=== PATIENT | female | born 2005 | race African-American/Black ===

== ENCOUNTER 2024-08-18 02:02 | Emergency (ER) | payer SELFPAY ==
[2024-08-18] MEDS ORDERED: NA CHLORIDE 0.9% 1,000 ML ONE (03:03)
[2024-08-18 03:23] LABS: Absolute Basophils 0.1 K/uL (0-0.5); Absolute Eosinophils 0.1 K/uL (0-0.5); Absolute Lymphocytes (CBC) 2.4 K/uL (0.7-4.9); Absolute Monocytes 0.7 K/uL (0.1-1.3); Absolute Neutrophil 4.3 K/uL (1.8-8.0); Basophils % 0.8 % (0-1.3); Eosinophils % 1.8 % (0-4.4); Hematocrit 27.5 % (36.0-45.0); Hemoglobin 9.2 g/dL (12.0-15.0); Lymphocytes % 31.2 % (15.3-44.8); MCH 23.5 pg (27.0-35.0); MCHC 33.4 g/dL (32.0-36.0); MCV 70.3 fL (80-100); MPV 9.2 fL (7.6-11.3); Monocytes % 9.8 % (3.3-12.3); Neutrophils % 56.4 % (41.7-73.7); Platelets 313 thou/uL (152-406); RBC Red Blood Cell Count 3.91 M/uL (3.86-4.86); Red Cell Distribution Width 15.7 % (12.1-15.2)
[2024-08-18 03:34] LABS: Albumin 3.6 g/dL (3.4-5.0); Albumin/Globulin Ratio 0.9 (1.1-1.8); Anion Gap 11.5 mEq/L (5.0-15.0); Bilirubin Total 0.2 mg/dL (0.2-1.0); Globulin 3.9 g/dL (2.3-3.5); Potassium 3.5 mEq/L (3.5-5.1); Protein, Total 7.5 g/dL (6.4-8.2)
--- NOTE | 2024-08-18 04:06 | ER ---
Nurse's Notes [facility] Name: Barbara De Paz Age: 18 yrs Sex: Female : 2005 Arrival Date: 08/18/2024 Time: 02:02 Bed 6 Private MD: Diagnosis: Weakness Presentation: 08/18 02:17 Chief complaint: Patient states: FEELING VERY WEAK, LIGHT HEADACHE, DIZZY, CHEST PAIN ha1 OFF AND ON. I WAS TOLD MY IRON WAS AND THAT I NEEDED AND IRON INFUSION BUT I HAVE NOT BEEN ABLE TO GET IT DONE YET. 02:17 Coronavirus screen: Client denies travel out of the [place] in the last 14 days. Ebola ha1 Screen: No symptoms or risks identified at this time. Initial Sepsis Screen: Does the patient meet any 2 criteria? No. Patient's initial sepsis screen is negative. Does the patient have a suspected source of infection? No. Patient's initial sepsis screen is negative. Risk Assessment: Do you want to hurt yourself or someone else? Patient reports no desire to harm self or others. Onset of symptoms was August 18, 2024. 02:17 Method Of Arrival: Wheelchair ha1 02:17 Acuity: CHELSI 3 ha1 Triage Assessment: 02:17 General: Appears ill, Behavior is calm, cooperative. Pain: Complains of pain in DENIES ha1 PAIN AT THIS MOMENT BUT HAD PREVIOUS EPISODES OF CHEST PAIN. Neuro: Level of Consciousness is awake, alert, obeys commands, Oriented to person, place, time, situation, Reports dizziness, headache. Cardiovascular: Capillary refill < 3 seconds Patient's skin is warm and dry. Respiratory: Airway is patent Respiratory effort is even, unlabored. GI: No signs and/or symptoms were reported involving the gastrointestinal system. Abdomen is round. : No signs and/or symptoms were reported regarding the genitourinary system. Derm: Skin is pale. Musculoskeletal: Circulation, motion, and sensation intact. Range of motion: intact in all extremities. 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 - Infectious Disease History:: Denies. - Social history:: Smoking status: Patient denies any tobacco usage or history of. Screenin:47 [facility] ED Fall Risk Assessment (Adult) History of falling in the last 3 months, ha1 including since admission Yes- single mechanical fall (1 pt) Confusion or Disorientation No (0 pts) Intoxicated or Sedated No (0 pts) Impaired Gait Yes (1 pt) Mobility Assist Device Used Yes (1 pt) Altered Elimination No (0 pt) Score/Fall Risk Level 3 or more points = High Risk Oriented to surroundings, Maintained a safe environment, Educated pt \T\ family on fall prevention, incl call for assistance when getting out of bed, Hourly rounding (assess needs \T\ fall precautionary measures) done. Abuse screen: Denies threats or abuse. Denies injuries from another. Nutritional screening: No deficits noted. Tuberculosis screening: No symptoms or risk factors identified. Assessment: 03:39 Reassessment: Patient appears in no apparent distress at this time. No changes from km10 previously documented assessment. Patient and/or family updated on plan of care and expected duration. Pain level reassessed. Vital Signs: 02:17 BP 123 / 68; Pulse 55; Resp 18 S; Temp 97.4(T); Pulse Ox 100% on R/A; Weight 65.77 kg; ha1 Height 5 ft. 3 in. ; 03:37 BP 93 / 74; Pulse 79; Resp 14; Pulse Ox 100% on R/A; km10 02:17 Body Mass Index 25.69 (65.77 kg, 160.02 cm) ha1 ED Course: 02:06 Patient arrived in ED. gm2 02:13 Janell Powell MD is Attending Physician. gb1 02:17 Patient has correct armband on for positive identification. Placed in gown. Bed in low ha1 position. Side rails up X2. 02:17 Provided Education on: PLAN OF CARE . ha1 02:20 Arm band placed on. km10 02:32 Matilde Maurice RN is Primary Nurse. ha1 02:38 Triage completed. ha1 02:49 Inserted saline lock: 20 gauge in right antecubital area, using aseptic technique. ha1 Blood collected. Flushed with 10 mL NS. 04:03 Test, Urine Sent. km10 04:06 No provider procedures requiring assistance completed. IV discontinued, intact, km10 bleeding controlled, No redness/swelling at site. Pressure dressing applied. Administered Medications: 03:08 Drug: NS 0.9% IV 1000 ml IV at 1 bolus Per protocol; to be given as a bolus over 60 km10 minutes Route: IV; Rate: 1 bolus; Site: right antecubital; 04:04 Follow up: Response: No adverse reaction; Marked relief of symptoms; IV Status: km10 Completed infusion Medication: 02:49 VIS not applicable for this client. ha1 Outcome: 04:06 Discharge ordered by . tamar 04:06 Discharged to home ambulatory, km10 04:06 Condition: stable 04:06 Discharge instructions given to patient, Instructed on discharge instructions, follow up and referral plans. 04:16 Patient left the ED. km10 Signatures: Matilde Maurice RN RN 1 Janell Powell MD MD gb1 Theresa Castillo 2 Helen Galvan RN RN km10
--- NOTE | 2024-08-18 04:06 | EDPHYS ---
Physician Documentation [facility] Name: Barbara De Paz Age: 18 yrs Sex: Female : 2005 Arrival Date: 08/18/2024 Time: 02:02 Bed 6 Private MD: ED Physician Janell Powell HPI: 08/18 04:02 This 18 yrs old Black Female presents to ER via Wheelchair with complaints of Weakness, gb1 Chest Tightness. 04:02 18-year-old -[place] female here with weakness and some chest tightness. She gb1 was told that she needed an iron transfusion because she can to be evaluated for that today. She is lightly spotting on her menstrual cycle currently. Patient denies any blood thinning medications or any antiplatelet medications. She is 9 months .. 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 - Infectious Disease History:: Denies. - Social history:: Smoking status: Patient denies any tobacco usage or history of. Exam: 04:02 Constitutional: This is a well developed, well nourished patient who is awake, alert, gb1 and in no acute distress. Head/Face: Normocephalic, atraumatic. Eyes: Pupils equal round and reactive to light, extra-ocular motions intact. Lids and lashes normal. Conjunctiva and sclera are non-icteric and not injected. Cornea within normal limits. Periorbital areas with no swelling, redness, or edema. ENT: Nares patent. No nasal discharge, no septal abnormalities noted. Tympanic membranes are normal and external auditory canals are clear. Oropharynx with no redness, swelling, or masses, exudates, or evidence of obstruction, uvula midline. Mucous membranes moist. Neck: Trachea midline, no thyromegaly or masses palpated, and no cervical lymphadenopathy. Supple, full range of motion without nuchal rigidity, or vertebral point tenderness. No Meningismus. Chest/axilla: Normal chest wall appearance and motion. Nontender with no deformity. No lesions are appreciated. Cardiovascular: Regular rate and rhythm with a normal S1 and S2. No gallops, murmurs, or rubs. Normal PMI, no JVD. No pulse deficits. Respiratory: Lungs have equal breath sounds bilaterally, clear to auscultation and percussion. No rales, rhonchi or wheezes noted. No increased work of breathing, no retractions or nasal flaring. Abdomen/GI: Soft, non-tender, with normal bowel sounds. No distension or tympany. No guarding or rebound. No evidence of tenderness throughout. Back: No spinal tenderness. No costovertebral tenderness. Full range of motion. Skin: Warm, dry with normal turgor. Normal color with no rashes, no lesions, and no evidence of cellulitis. Vital Signs: 02:17 BP 123 / 68; Pulse 55; Resp 18 S; Temp 97.4(T); Pulse Ox 100% on R/A; Weight 65.77 kg; ha1 Height 5 ft. 3 in. ; 03:37 BP 93 / 74; Pulse 79; Resp 14; Pulse Ox 100% on R/A; km10 02:17 Body Mass Index 25.69 (65.77 kg, 160.02 cm) [facility] MDM: 02:22 Medical Screening Exam initiated gb 04:02 Data reviewed: vital signs, nurses notes, lab test result(s), CBC. gb 04:02 ED course: 18-year-old female with weakness and chest tightness. No anginal component gb1 at this time. Patient has a stable H\T\H today no indication for emergent PRBC transfusion. I do recommend that she see RETORT FORKER and be evaluated for an iron infusion as she was previously recommended to do so. She is otherwise vitally stable is a normal physical exam her EKG shows sinus bradycardia at 49 bpm. Patient states that she has a history of a low heart rate I do recommend follow-up with cardiology to be evaluated to wear a Holter monitor for further investigation. Her EKG shows no acute interval changes normal axis.. 08/18 02:59 Order name: CBC with Diff; Complete Time: 03:51 gb08/18 02:59 Order name: CMP; Complete Time: 03:51 gb08/18 02:59 Order name: Test, Urine 08/18 02:59 Order name: UA Rfx Germán Cult if indicated 08/18 02:59 Order name: IV Saline Lock; Complete Time: 03:00 gb1 08/18 02:59 Order name: Labs collected and sent; Complete Time: 03:08 gb1 Administered Medications: 03:08 Drug: NS 0.9% IV 1000 ml IV at 1 bolus Per protocol; to be given as a bolus over 60 km10 minutes Route: IV; Rate: 1 bolus; Site: right antecubital; 04:04 Follow up: Response: No adverse reaction; Marked relief of symptoms; IV Status: km10 Completed infusion Disposition Summary: 08/18/24 04:06 Discharge Ordered Notes: Location: Home gb1 Condition: Stable gb1 Diagnosis - Weakness gb1 Followup: gb1 - With: Private Physician - When: - Reason: Further diagnostic work-up, Recheck today's complaints Discharge Instructions: - Discharge Summary Sheet gb1 - Weakness gb1 Forms: - Medication Reconciliation Form gb1 - Antibiotic Education gb1 - Prescription Opioid Use gb1 - Patient Portal Instructions gb1 - Leadership Thank You Letter gb1 Signatures: Dispatcher [employer] EDMatilde Olivo, RN RN ha1 Janell Powell MD MD 1 Helen Galvan RN RN km10 Corrections: (The following items were deleted from the chart) 03:00 03:00 CBC+H.LAB.BRZ ordered. EDMS EDMS 03:00 03:00 COMPREHENSIVE METABOLIC PANEL+C.LAB.BRZ ordered. EDMS EDMS 03:00 03:00 Test, Urine+UC.LAB.BRZ ordered. EDMS EDMS 03:00 03:00 UA Rfx Germán Cult if indicated+U.LAB.BRZ ordered. EDMS EDMS
[2024-08-18 04:26] LABS: Specific Gravity > 1.030 (1.005-1.030); Sqamous Epithelial <5 /HPF (None Seen); Urine Bacteria <20 /HPF (<20); Urine Bilirubin NEGATIVE (Negative); Urine Blood 2+ (Negative); Urine Clarity Clear (Clear); Urine Color Yellow (Yellow); Urine Culture Reflex Order REFLEXED; Urine Glucose NEGATIVE (Negative); Urine Ketones NEGATIVE (Negative); Urine Microscopic Reflex YN ORDER UMIC; Urine Mucus 4+ /HPF (None Seen); Urine Nitrite NEGATIVE (Negative); Urine Protein TRACE (Negative); Urine Urobilinogen Normal (Normal); Urine pH 5.5 (5.0-7.0)
[2024-08-18 04:27] LABS: Specific Gravity > 1.030 (1.005-1.030)
[2024-08-18 04:35] VITALS: TEMP 97.4; O2SAT 100
[2024-08-18 04:41] VITALS: BP 93/74
--- NOTE | 2024-08-21 16:52 | EKG ---
Test Date: 2024-08-18 Test Time: 02:52:20 Tester Operator Helper: MILA MEASUREMENT RESULTS: Intervals: Rate: 49 WY: 136 QRSD: 72 QT: 454 QTc: 410 Britton: P: 41 WY: 136 QRS: 59 T: 44 INTERPRETIVE STATEMENTS: Sinus bradycardia Otherwise normal ECG No previous ECG available for comparison Electronically Signed On 08-21-24 16:48:44 CDT by Sanju Felix
== END 2024-08-18 04:16 | disposition home or self-care (01) ==
LOC: ER 02:02
DX: R53.1 Weakness (principal); R07.89 Other chest pain
CPT/HCPCS: 36415; 80053; 81001; 81025; 85025; 87077; 87086; 87088; 87186; 93005; 96360; 99284; J7030